=== PATIENT | female | born 1970 | race Caucasian/White ===

== ENCOUNTER 2024-03-22 09:23 | Outpatient (REF) | payer OTHER, SELFPAY | END 2024-03-22 09:24 | disposition home or self-care (01) | LOC: HO.US 09:23 | PROVIDERS: PCP Internal Medicine; Visit Provider Internal Medicine | DX: R10.12 Left upper quadrant pain (principal); R74.8 Abnormal levels of other serum enzymes | CPT/HCPCS: 76700 ==